=== PATIENT | male | born 1995 | race Caucasian/White ===

== ENCOUNTER 2022-09-07 14:38 | Observation (INO) | payer BC ==
--- NOTE | 2022-09-07 15:02 | ERPHSYRPT ---
- History of Present Illness Time Seen by Provider: 09/07/22 15:02 Historian: patient Exam Limitations: no limitations Patient Subjective Stated Complaint: co right upper abd pain since yesterday , fever of 101 yesterday. last bm yesterday normal for him Triage Nursing Assessment: pt alert, resp easy, walked in, skin w/d/p. no edema noted Physician History: RUQ abd pain for a day, some fever, no other sx, still has his gallbladder. Timing/Duration: yesterday Activities at Onset: none Quality: dullness Abdominal Pain Onset Location: RUQ Pain Radiation: no radiation Severity of Pain-Max: moderate Severity of Pain-Current: moderate Modifying Factors: Improves With: nothing Associated Symptoms: fever/chills, loss of appetite Previous symptoms: no prior history Allergies/Adverse Reactions: amoxicillin Allergy (Verified 09/07/22 14:56) Home Medications: Lisinopril 20 mg [Zestril 20 MG] 20 mg PO DAILY 09/07/22 [History] Hx Influenza Vaccination/Date Given: No Hx Pneumococcal Vaccination/Date Given: No Immunizations Up to Date: Yes Travel Risk - International Travel Have you traveled outside of the country in past 3 weeks: No - Coronavirus Screening Are you exhibiting any of the following symptoms?: No Close contact with a COVID-19 positive Pt in past 14-21 Days: No - Vaccine Status Have you recieved a Covid-19 vaccination: Yes Loan Servicing Specialist: [email or web address] - Vaccination Dates Date of 2cond Vaccination (if applicable): 2020 - Review of Systems Constitutional: Fever Eyes: No Symptoms Ears, Nose, & Throat: No Symptoms Respiratory: No Symptoms Cardiac: No Symptoms Abdominal/Gastrointestinal: Abdominal Pain Genitourinary Symptoms: No Symptoms Musculoskeletal: No Symptoms Skin: No Symptoms Neurological: No Symptoms Psychological: No Symptoms Endocrine: No Symptoms Hematologic/Lymphatic: No Symptoms Immunological/Allergic: No Symptoms All Other Systems: Reviewed and Negative - Past Medical History Pertinent Past Medical History: Yes Cardiac History: Hypertension - Past Surgical History Past Surgical History: Yes - Social History Smoking Status: Never smoker Exposure to second hand smoke: No Drug Use: none Patient Lives Alone: Yes - Nursing Vital Signs Nursing Vital Signs: Initial Vital Signs Temperature 98.8 F 09/07/22 14:58 Pulse Rate 114 H 09/07/22 14:58 Respiratory Rate 18 09/07/22 14:58 Blood Pressure 151/105 09/07/22 14:58 O2 Sat by Pulse Oximetry 96 09/07/22 14:58 Pain Scale Pain Intensity 8 - Physical Exam General Appearance: mild distress Eye Exam: PERRL/EOMI Ears, Nose, Throat Exam: normal ENT inspection Neck Exam: normal inspection, non-tender Respiratory Exam: normal breath sounds, lungs clear Cardiovascular Exam: regular rate/rhythm, normal heart sounds Gastrointestinal/Abdomen Exam: soft, normal bowel sounds, tenderness (RUQ) Male Genitalia Exam: normal genitalia Rectal Exam: deferred Back Exam: normal inspection, normal range of motion Extremity Exam: normal inspection, normal range of motion Neurologic Exam: alert, oriented x 3, cooperative Skin Exam: normal color, warm SpO2 Interpretation: normal SpO2: 96 O2 Delivery: Room Air - Course Nursing assessment & vital signs reviewed: Yes EKG Interpreted by Me: RATE ([id number]), Sinus Rhythm, NORMAL AXIS, NORMAL INTERVALS, NORMAL QRS, NORMAL ST-T - CT Exams Abdomen/Pelvis CT Interpretation: Negative, Tele-radiologist Report Ordered Tests: Active Orders 24 hr Category Date Time Status EKG-ER Only STAT Care 09/07/22 18:23 Active ABDOMEN AND PELVIS W/0 CONTRAS [CT] Stat Exams 09/07/22 15:11 Completed CBC W DIFF Stat Lab 09/07/22 15:10 Completed CMP Stat Lab 09/07/22 15:36 Completed LIPASE Stat Lab 09/07/22 15:36 Completed UA W/RFX UR CULTURE Stat Lab 09/07/22 15:52 Completed Medication Summary Generic Name Dose Route Start Last Admin Trade Name Freq PRN Reason Stop Dose Admin Acetaminophen 1,000 mg 09/07/22 18:36 09/07/22 18:37 Acetaminophen 500 Mg Tablet PO 10/07/22 18:35 1,000 mg Q4H PRN PRN Administration HEADACHE Discontinued Medications Generic Name Dose Route Start Last Admin Trade Name Freq PRN Reason Stop Dose Admin Hydromorphone HCl 1 mg 09/07/22 19:17 09/07/22 19:41 Hydromorphone 1 Mg/1ml Inj IV 09/07/22 19:18 1 mg STAT ONE Administration Hydromorphone HCl Confirm 09/07/22 19:39 Hydromorphone 1 Mg/1ml Inj Administered 09/07/22 19:40 Dose 1 mg .ROUTE .STK-MED ONE Ceftriaxone Sodium/Dextrose 1 g in 50 mls @ 100 mls/hr 09/07/22 17:45 09/07/22 19:10 Rocephin 1 Gm-D5w 50 Ml Bag IV 09/07/22 18:14 Infused STAT STA Infusion Ceftriaxone Sodium/Dextrose Confirm 09/07/22 17:58 Rocephin 1 Gm-D5w 50 Ml Bag Administered 09/07/22 17:59 Dose 1 g in 50 mls @ ud IV .STK-MED ONE Ketorolac Tromethamine 30 mg 09/07/22 17:35 09/07/22 17:39 Ketorolac Tromethamine 30 Mg/Ml Inj IV 09/07/22 17:36 30 mg STAT ONE Administration Ketorolac Tromethamine Confirm 09/07/22 17:37 Ketorolac Tromethamine 30 Mg/Ml Inj Administered 09/07/22 17:38 Dose 30 mg .ROUTE .STK-MED ONE Metoprolol Tartrate 5 mg 09/07/22 18:10 09/07/22 18:19 Metoprolol Tartrate 5 Mg/5 Ml Vial IV 09/07/22 18:11 5 mg STAT ONE Administration Metoprolol Tartrate Confirm 09/07/22 18:16 Metoprolol Tartrate 5 Mg/5 Ml Vial Administered 09/07/22 18:17 Dose 5 mg IV .STK-MED ONE Ondansetron HCl 4 mg 09/07/22 19:17 09/07/22 19:40 Ondansetron Hcl 4 Mg/2 Ml Vial IV 09/07/22 19:18 4 mg STAT ONE Administration Ondansetron HCl Confirm 09/07/22 19:38 Ondansetron Hcl 4 Mg/2 Ml Vial Administered 09/07/22 19:39 Dose 4 mg .ROUTE .STK-MED ONE Lab/Rad Data: Laboratory Result Diagrams 09/07/22 15:10 09/07/22 15:36 Laboratory Results 09/07/22 09/07/22 09/07/22 Range/Units 15:52 15:36 15:10 WBC 11.6 H (4.0-10.5) x10^3/uL RBC 5.69 H (4.1-5.6) x10^6/uL Hgb 15.9 (12.5-18.0) g/dL Hct 49.0 (42-50) % MCV 86.1 (78-100) fL MCH 27.9 (26-32) pg MCHC 32.4 (32-36) g/dL RDW 12.3 (11.5-14.0) % Plt Count 300 (150-450) x10^3/uL MPV 9.7 (7.5-11.0) fL Gran % 77.7 H (36.0-66.0) % Immature Gran % (Auto) 1.0 H (0.00-0.4) % Nucleat RBC Rel Count 0.0 (0.00-0.1) % Eos # (Auto) 0.05 (0-0.5) x10^3/uL Immature Gran # (Auto) 0.12 H (0.00-0.03) x10^3u/L Absolute Lymphs (auto) 1.22 (1.0-4.6) x10^3/uL Absolute Monos (auto) 1.16 (0.0-1.3) x10^3/uL Absolute Nucleated RBC 0.00 (0.00-0.01) x10^3u/L Lymphocytes % 10.5 L (24.0-44.0) % Monocytes % 10.0 (0.0-12.0) % Eosinophils % 0.4 (0.00-5.0) % Basophils % 0.4 (0.0-0.4) % Absolute Granulocytes 9.02 H (1.4-6.9) x10^3/uL Basophils # 0.05 (0-0.4) x10^3/uL Sodium 135 L (137-145) mmol/L Potassium 3.9 (3.5-5.1) mmol/L Chloride 95 L (98-107) mmol/L Carbon Dioxide 28 (22-30) mmol/L Anion Gap 15.8 H (5-15) MEQ/L BUN 12 (9-20) mg/dL Creatinine 0.68 (0.66-1.25) mg/dL Estimated GFR > 60.0 ML/MIN Glucose 136 H (74-106) mg/dL Calcium 9.1 (8.4-10.2) mg/dL Total Bilirubin 1.40 H (0.2-1.3) mg/dL AST 55 (17-59) U/L ALT 102 H (0-50) U/L Alkaline Phosphatase 103 (38-126) U/L Serum Total Protein 8.9 H (6.3-8.2) g/dL Albumin 4.8 (3.5-5.0) g/dL Lipase 37 (23-300) U/L Urine Color Yellow (Yellow) Urine Appearance Clear (Clear) Urine pH 6.5 (4.6-8.0) Ur Specific [place] 1.025 (1.005-1.030) Urine Protein Negative (Negative) Urine Glucose (UA) Negative (Negative) mg/dL Urine Ketones 80 A (Negative) Urine Blood Negative (Negative) Urine Nitrite Negative (Negative) Urine Bilirubin Negative (Negative) Urine Urobilinogen 2.0 A (0.2) mg/dL Ur Leukocyte Esterase Negative (Negative) U Hyaline Cast (Auto) NONE SEEN (0-2) /LPF Urine Microscopic RBC 0-2 (0-5) /HPF Urine Microscopic WBC 0-2 (0-5) /HPF Ur Epithelial Cells None Seen (None Seen) /HPF Urine Bacteria None Seen (None Seen) /HPF Urine Culture Reflexed NO (NO) - Progress Progress: improved Progress Note: 09/07/22 20:23 Symptoms suggest gallbladder infection, but unremarkable CT and labs, needing narcotics for pain control, OK for obs per Dr. Whitney. Discussed with : Waleska Will see patient in: hospital (observation) Counseled pt/family regarding: lab results, diagnosis, need for follow-up, rad results Medical Desision Making - Independent Historian Additional History obtained from: Family - Discussion of managment Care discussed with:: on-call "doc" Reviewed:: Test results, Need for additional workup Agreed on:: Treatment plan, place in obs Will see patient: in hospital - Diagnostic Testing Diagnostic test were ordered, analyzed, and reviewed by me: Yes Radiological Interpretation: Teleradiologist Report - Risk of complications Low Risk: Low risk of morbidity from additional dx testing or treatment - Departure Departure Disposition: Observation Clinical Impression: Cholecystitis, acute Condition: Stable Critical Care Time: No Referrals: GINGER MACIAS NP [Primary Care Provider] - Follow up/PCP as directed
[2022-09-07 15:34] LABS: Absolute Neutrophil Ct (ANC) 9.02 x10^3/uL (1.4-6.9); BASOPHIL % 0.4 % (0.0-0.4); Basophil (Absolute #) 0.05 x10^3/uL (0-0.4); Eosinophil % 0.4 % (0.00-5.0); Eosinophil (Absolute #) 0.05 x10^3/uL (0-0.5); Hemoglobin 15.9 g/dL (12.5-18.0); IMMATURE GRAN # 0.12 x10^3u/L (0.00-0.03); Lymphocyte (Absolute #) 1.22 x10^3/uL (1.0-4.6); Lymphocytes % 10.5 % (24.0-44.0); Mean Cell Volume 86.1 fL (78-100); Mean Corpuscular Hemoglobin 27.9 pg (26-32); Mean Corpuscular Hgb Concent. 32.4 g/dL (32-36); Mean Platelet Volume 9.7 fL (7.5-11.0); Monocyte (Absolute #) 1.16 x10^3/uL (0.0-1.3); Neutrophil % 77.7 % (36.0-66.0); Platelet Count 300 x10^3/uL (150-450); Red Blood Count 5.69 x10^6/uL (4.1-5.6); Red Cell Distribution Width 12.3 % (11.5-14.0); White Blood Count 11.6 x10^3/uL (4.0-10.5)
[2022-09-07 15:50] LABS: ALBUMIN 4.8 g/dL (3.5-5.0); ALKALINE PHOSPHATASE 103 U/L (38-126); ANION GAP 15.8 MEQ/L (5-15); BLOOD UREA NITROGEN 12 mg/dL (9-20); CHLORIDE 95 mmol/L (98-107); Calcium 9.1 mg/dL (8.4-10.2); Carbon Dioxide 28 mmol/L (22-30); Creatinine 1 0.68 mg/dL (0.66-1.25); EST GLOMERULAR FILTRATION RATE > 60.0 ML/MIN; Glucose 136 mg/dL (74-106); LIPASE 37 U/L (23-300); Potassium 3.9 mmol/L (3.5-5.1); SGOT/AST 55 U/L (17-59); SGPT/ALT 102 U/L (0-50); SODIUM 135 mmol/L (137-145); Total Protein 8.9 g/dL (6.3-8.2)
[2022-09-07 16:06] LABS: Appearance Clear (Clear); Bacteria None Seen /HPF (None Seen); Bilirubin Negative (Negative); Blood Negative (Negative); Epithelial Cells None Seen /HPF (None Seen); Glucose, Urine Negative (Negative); Hyaline Casts NONE SEEN /LPF (0-2); Ketones 80 (Negative); Leukocyte Esterase Negative (Negative); Nitrite Negative (Negative); Ph 6.5 (4.6-8.0); Protein,Urine Dip Negative (Negative); RBC 0-2 /HPF (0-5); Specific Gravity 1.025 (1.005-1.030); WBC 0-2 /HPF (0-5)
[2022-09-07 16:13] LABS: ADD URINE CULTURE? NO (NO)
--- NOTE | 2022-09-07 16:46 | XRAY ---
CLINICAL HISTORY:Abd pain; COMPARISON:None; TECHNIQUES:Contiguous, multislice, nonenhanced CT scan of the abdomen and pelvis in the axial plane with multiplanar reconstructions; FINDINGS: Mild enlarged liver showing no obvious focal lesion within the limitations of noncontrast study. Gallbladder shows no definite calculi inside. Pancreas and spleen appear unremarkable. No adrenal or retroperitoneal masses. Both kidneys appear normal in size, shows normal contour and attenuation. No calculus, mass or hydronephrosis in either kidneys. No ascites. No para-aortic lymphadenopathy. Few noncomplicated colonic diverticulosis mainly involving sigmoid colon without evidence of diverticulitis. Appendix visualized and appear within normal limits. Partially distended urinary bladder, appear free from intraluminal stones, mass or diverticular outpouching. Normal-sized prostate. No acute osseous abnormalities or suspicious bony lesions. Visualized sections of lower chest shows no focal mass or consolidation. IMPRESSION: Mild hepatomegaly. Noncomplicated colonic diverticulosis mainly involving sigmoid colon without evidence of diverticulitis. Rest of the visualized abdominopelvic structures appear unremarkable. Electronically Signed by: Flory Valerio MD. ( 09/07/2022 15:41:48 PHYSICIAN RELATIONS MANAGER)
[2022-09-07] MEDS ORDERED: TORAdol 30 mg Injection IV ONE (17:35)
[2022-09-07] MEDS ORDERED: TORAdol 30 mg Injection ONE (17:37)
[2022-09-07] MEDS ORDERED: ROCEPHIN 1 Gm-D5w 50 ml Bag** 1 G/50 ML IVPB IV STA (17:45)
[2022-09-07] MEDS ORDERED: ROCEPHIN 1 Gm-D5w 50 ml Bag** 1 G/50 ML IVPB IV ONE (17:58)
[2022-09-07] MEDS ORDERED: LOPRESSOR INJECTION IV ONE ×2 (18:10→18:16)
[2022-09-07] MEDS ORDERED: TYLENOL EXTRA STRENGTH 500 MG PO PRN (18:36)
[2022-09-07] MEDS ORDERED: Hydromorphone 1 mg/ml Injection IV ONE (19:17)
[2022-09-07] MEDS ORDERED: Zofran 4 MG/2 ML VIAL IV ONE (19:17)
[2022-09-07] MEDS ORDERED: Zofran 4 MG/2 ML VIAL ONE (19:38)
[2022-09-07] MEDS ORDERED: Hydromorphone 1 mg/ml Injection ONE (19:39)
[2022-09-07 20:10] LABS: INFLUENZA A NEGATIVE (NEGATIVE); INFLUENZA B NEGATIVE (NEGATIVE); RESPIRATORY SYNCTIAL VIRUS NEGATIVE (NEGATIVE); SARS-CoV-2 Xpert Express NEGATIVE (NEGATIVE)
[2022-09-07] MEDS ORDERED: Levofloxacin 500MG/100ML D5W 500 MG/100 ML BAG IV SCH (22:00)
[2022-09-07] MEDS ORDERED: Zofran 4 MG/2 ML VIAL IV PRN (22:19)
[2022-09-07] MEDS: Sodium Chloride 0.9% 1000 ML 1,000 ML IV SCH (23:00)
[2022-09-08] MEDS: FLAGYL 500 MG IVPB 500 MG/100 ML BAG IV SCH ×4 (00:32→21:10)
[2022-09-08 04:44] LABS: Absolute Neutrophil Ct (ANC) 6.87 x10^3/uL (1.4-6.9); BASOPHIL % 0.5 % (0.0-0.4); Basophil (Absolute #) 0.05 x10^3/uL (0-0.4); Eosinophil % 0.8 % (0.00-5.0); Eosinophil (Absolute #) 0.08 x10^3/uL (0-0.5); Hematocrit 44.9 % (42-50); Hemoglobin 14.8 g/dL (12.5-18.0); IMMATURE GRAN # 0.13 x10^3u/L (0.00-0.03); IMMATURE GRAN % 1.2 % (0.00-0.4); Lymphocyte (Absolute #) 1.64 x10^3/uL (1.0-4.6); Lymphocytes % 15.6 % (24.0-44.0); Mean Platelet Volume 9.3 fL (7.5-11.0); Monocyte (Absolute #) 1.75 x10^3/uL (0.0-1.3); Monocytes % 16.6 % (0.0-12.0); Neutrophil % 65.3 % (36.0-66.0); Platelet Count 275 x10^3/uL (150-450); Red Blood Count 5.28 x10^6/uL (4.1-5.6); Red Cell Distribution Width 12.6 % (11.5-14.0); White Blood Count 10.5 x10^3/uL (4.0-10.5)
[2022-09-08 04:58] LABS: ALBUMIN 3.9 g/dL (3.5-5.0); ALKALINE PHOSPHATASE 82 U/L (38-126); ANION GAP 12.1 MEQ/L (5-15); BLOOD UREA NITROGEN 16 mg/dL (9-20); CHLORIDE 100 mmol/L (98-107); Calcium 8.2 mg/dL (8.4-10.2); Carbon Dioxide 26 mmol/L (22-30); Creatinine 1 0.68 mg/dL (0.66-1.25); EST GLOMERULAR FILTRATION RATE > 60.0 ML/MIN; Glucose 126 mg/dL (74-106); Potassium 3.8 mmol/L (3.5-5.1); SGOT/AST 37 U/L (17-59); SGPT/ALT 73 U/L (0-50); SODIUM 134 mmol/L (137-145); Total Protein 7.4 g/dL (6.3-8.2)
[2022-09-08] MEDS: Hydromorphone 1 mg/ml Injection IV PRN ×4 (05:47→21:54)
[2022-09-08 07:20] LABS: Slide Review 1 YES
[2022-09-08] MEDS: Sodium Chloride 0.9% 1000 ML 1,000 ML IV SCH ×2 (08:18→17:32)
--- NOTE | 2022-09-08 11:04 | XRAY ---
Indication: Pain. Two-dimensional gallbladder sonogram performed. Comparison: None Pancreas obscured due to overlying bowel gas. Gallbladder normally distended with minimal sludge in the dependent portion. No gallstones, abnormal wall thickening, or pericholecystic fluid. Common bile duct measures 4.1 mm. No intrahepatic biliary distention. Visualized liver is fatty in echogenicity. No focal solid/cystic hepatic mass. Right kidney measures 15 cm in length and sonographically unremarkable. Impression: Nonvisualization pancreas. Minimal gallbladder sludge. Fatty liver.
--- NOTE | 2022-09-08 12:54 | PCM.HP ---
History of Present Illness - Chief Complaint Chief Complaint: abdominal pain Date: 09/08/22 History of Present Illness: is a 27 year old male patient of [facility] who presented to ER C/O RUQ pain and fever 101 since yesterday last bm yesterday normal . PMHx includes HTN. Patient has not had previous abdominal surgery. - Review of Systems Constitutional: Fever Eyes: No Symptoms Ears, Nose, & Throat: No Symptoms Respiratory: No Symptoms Cardiac: No Symptoms Abdominal/Gastrointestinal: Abdominal Pain, Nausea Genitourinary Symptoms: No Symptoms Musculoskeletal: No Symptoms Skin: No Symptoms Neurological: No Symptoms Psychological: No Symptoms Endocrine: No Symptoms Hematologic/Lymphatic: No Symptoms Medications & Allergies Home Medications: Home Medication List Lisinopril 20 mg [Zestril 20 MG] 20 mg PO DAILY 09/07/22 [History Confi rmed 09/08/22] Allergies/Adverse Reactions: Allergies Allergy/AdvReac Type Severity Reaction Status Date / Time amoxicillin Allergy Verified 09/07/22 14:56 - Past Medical History Past Medical History: Yes Neurological History: No Pertinent History ENT History: No Pertinent History Cardiac History: Hypertension Respiratory History: No Pertinent History Endocrine Medical History: No Pertinent History Musculoskelatal History: No Pertinent History GI Medical History: No Pertinent History History: No Pertinent History Pyscho-Social History: No Pertinent History Male Reproductive Disorders: No Pertinent History - Past Surgical History Past Surgical History: Yes Neuro Surgical History: No Pertinent History Cardiac History: No Pertinent History Respiratory Surgery: No Pertinent History GI Surgical History: No Pertinent History Genitourinary Surgical Hx: No Pertinent History Musculskeletal Surgical Hx: No Pertinent History Male Surgical History: No Pertinent History - Social History Smoking Status: Never smoker Exposure to second hand smoke: No Alcohol: Occasionally Drug Use: none - Physical Exam Vital Signs: Vital Signs - 24 hr Temp Pulse Resp BP Pulse Ox 09/08/22 08:00 97.7 F 90 18 111/57 93 L 09/08/22 04:17 99.1 F 70 20 119/70 99 09/08/22 02:45 99.1 F 70 20 119/70 99 09/08/22 01:26 98.1 F 94 H 17 09/07/22 22:08 98.1 F 94 H 09/07/22 21:34 98.1 F 94 H 17 09/07/22 20:32 96 09/07/22 20:00 101 H 22 122/78 95 09/07/22 19:43 98 H 13 122/78 95 09/07/22 18:34 101.6 F 105 H 20 118/81 97 09/07/22 18:05 121 H 16 159/87 94 L 09/07/22 17:00 110 H 18 165/92 96 09/07/22 16:39 114 H 18 140/106 98 09/07/22 14:58 98.8 F 114 H 18 151/105 96 General Appearance: no apparent distress Neurologic Exam: alert, oriented x 3, cooperative, normal mood/affect Eye Exam: eyes nml inspection Ears, Nose, Throat Exam: normal ENT inspection Neck Exam: normal inspection Respiratory Exam: normal breath sounds Cardiovascular Exam: regular rate/rhythm Gastrointestinal/Abdomen Exam: soft, tenderness (RUQ), guarding Rectal Exam: not done Back Exam: normal inspection Extremity Exam: normal inspection Skin Exam: normal color, warm, dry Results - Labs Lab/Micro Results: Lab Results-Last 24 Hours 09/07/22 09/07/22 09/07/22 Range/Units 15:10 15:36 15:52 WBC 11.6 H (4.0-10.5) x10^3/uL RBC 5.69 H (4.1-5.6) x10^6/uL Hgb 15.9 (12.5-18.0) g/dL Hct 49.0 (42-50) % MCV 86.1 (78-100) fL MCH 27.9 (26-32) pg MCHC 32.4 (32-36) g/dL RDW 12.3 (11.5-14.0) % Plt Count 300 (150-450) x10^3/uL MPV 9.7 (7.5-11.0) fL Gran % 77.7 H (36.0-66.0) % Immature Gran % (Auto) 1.0 H (0.00-0.4) % Nucleat RBC Rel Count 0.0 (0.00-0.1) % Eos # (Auto) 0.05 (0-0.5) x10^3/uL Immature Gran # (Auto) 0.12 H (0.00-0.03) x10^3u/L Absolute Lymphs (auto) 1.22 (1.0-4.6) x10^3/uL Absolute Monos (auto) 1.16 (0.0-1.3) x10^3/uL Absolute Nucleated RBC 0.00 (0.00-0.01) x10^3u/L Lymphocytes % 10.5 L (24.0-44.0) % Monocytes % 10.0 (0.0-12.0) % Eosinophils % 0.4 (0.00-5.0) % Basophils % 0.4 (0.0-0.4) % Absolute Granulocytes 9.02 H (1.4-6.9) x10^3/uL Basophils # 0.05 (0-0.4) x10^3/uL Sodium 135 L (137-145) mmol/L Potassium 3.9 (3.5-5.1) mmol/L Chloride 95 L (98-107) mmol/L Carbon Dioxide 28 (22-30) mmol/L Anion Gap 15.8 H (5-15) MEQ/L BUN 12 (9-20) mg/dL Creatinine 0.68 (0.66-1.25) mg/dL Estimated GFR > 60.0 ML/MIN Glucose 136 H (74-106) mg/dL Calcium 9.1 (8.4-10.2) mg/dL Total Bilirubin 1.40 H (0.2-1.3) mg/dL AST 55 (17-59) U/L ALT 102 H (0-50) U/L Alkaline Phosphatase 103 (38-126) U/L Serum Total Protein 8.9 H (6.3-8.2) g/dL Albumin 4.8 (3.5-5.0) g/dL Lipase 37 (23-300) U/L Urine Color Yellow (Yellow) Urine Appearance Clear (Clear) Urine pH 6.5 (4.6-8.0) Ur Specific [place] 1.025 (1.005-1.030) Urine Protein Negative (Negative) Urine Glucose (UA) Negative (Negative) mg/dL Urine Ketones 80 A (Negative) Urine Blood Negative (Negative) Urine Nitrite Negative (Negative) Urine Bilirubin Negative (Negative) Urine Urobilinogen 2.0 A (0.2) mg/dL Ur Leukocyte Esterase Negative (Negative) U Hyaline Cast (Auto) NONE SEEN (0-2) /LPF Urine Microscopic RBC 0-2 (0-5) /HPF Urine Microscopic WBC 0-2 (0-5) /HPF Ur Epithelial Cells None Seen (None Seen) /HPF Urine Bacteria None Seen (None Seen) /HPF Urine Culture Reflexed NO (NO) Influenza Type A Ag (NEGATIVE) Influenza Type B Ag (NEGATIVE) RSV (PCR) (NEGATIVE) SARS-CoV-2 (PCR) (NEGATIVE) Slides for Path Review 09/07/22 09/08/22 09/08/22 Range/Units 19:31 04:30 04:30 WBC 10.5 (4.0-10.5) x10^3/uL RBC 5.28 (4.1-5.6) x10^6/uL Hgb 14.8 (12.5-18.0) g/dL Hct 44.9 (42-50) % MCV 85.0 (78-100) fL MCH 28.0 (26-32) pg MCHC 33.0 (32-36) g/dL RDW 12.6 (11.5-14.0) % Plt Count 275 (150-450) x10^3/uL MPV 9.3 (7.5-11.0) fL Gran % 65.3 (36.0-66.0) % Immature Gran % (Auto) 1.2 H (0.00-0.4) % Nucleat RBC Rel Count 0.0 (0.00-0.1) % Eos # (Auto) 0.08 (0-0.5) x10^3/uL Immature Gran # (Auto) 0.13 H (0.00-0.03) x10^3u/L Absolute Lymphs (auto) 1.64 (1.0-4.6) x10^3/uL Absolute Monos (auto) 1.75 H (0.0-1.3) x10^3/uL Absolute Nucleated RBC 0.00 (0.00-0.01) x10^3u/L Lymphocytes % 15.6 L (24.0-44.0) % Monocytes % 16.6 H (0.0-12.0) % Eosinophils % 0.8 (0.00-5.0) % Basophils % 0.5 (0.0-0.4) % Absolute Granulocytes 6.87 (1.4-6.9) x10^3/uL Basophils # 0.05 (0-0.4) x10^3/uL Sodium 134 L (137-145) mmol/L Potassium 3.8 (3.5-5.1) mmol/L Chloride 100 (98-107) mmol/L Carbon Dioxide 26 (22-30) mmol/L Anion Gap 12.1 (5-15) MEQ/L BUN 16 (9-20) mg/dL Creatinine 0.68 (0.66-1.25) mg/dL Estimated GFR > 60.0 ML/MIN Glucose 126 H (74-106) mg/dL Calcium 8.2 L (8.4-10.2) mg/dL Total Bilirubin 0.90 (0.2-1.3) mg/dL AST 37 (17-59) U/L ALT 73 H (0-50) U/L Alkaline Phosphatase 82 (38-126) U/L Serum Total Protein 7.4 (6.3-8.2) g/dL Albumin 3.9 (3.5-5.0) g/dL Lipase (23-300) U/L Urine Color (Yellow) Urine Appearance (Clear) Urine pH (4.6-8.0) Ur Specific [place] (1.005-1.030) Urine Protein (Negative) Urine Glucose (UA) (Negative) mg/dL Urine Ketones (Negative) Urine Blood (Negative) Urine Nitrite (Negative) Urine Bilirubin (Negative) Urine Urobilinogen (0.2) mg/dL Ur Leukocyte Esterase (Negative) U Hyaline Cast (Auto) (0-2) /LPF Urine Microscopic RBC (0-5) /HPF Urine Microscopic WBC (0-5) /HPF Ur Epithelial Cells (None Seen) /HPF Urine Bacteria (None Seen) /HPF Urine Culture Reflexed (NO) Influenza Type A Ag NEGATIVE (NEGATIVE) Influenza Type B Ag NEGATIVE (NEGATIVE) RSV (PCR) NEGATIVE (NEGATIVE) SARS-CoV-2 (PCR) NEGATIVE (NEGATIVE) Slides for Path Review YES - Radiology Impressions Radiology Exams & Impressions: Radiology Procedures Category Date Time Status ABDOMEN AND PELVIS W/0 CONTRAS [CT] Stat Exams 09/07/22 15:11 Completed GALLBLADDER [US] Urgent Exams 09/08/22 22:22 Completed Assessment/Plan (1) Cholecystitis, acute Current Visit: Yes Status: Acute Code(s): K81.0 - ACUTE CHOLECYSTITIS (2) Sludge in gallbladder Current Visit: Yes Status: Acute Code(s): K82.8 - OTHER SPECIFIED DISEASES OF GALLBLADDER (3) HTN (hypertension) Current Visit: Yes Status: Chronic Code(s): I10 - ESSENTIAL (PRIMARY) HYPERTENSION
[2022-09-08] MEDS ORDERED: Zestril 20 MG PO SCH (13:00)
--- NOTE | 2022-09-08 15:16 | CONS ---
CONSULT DATE: 09/08/2022 HISTORY: The patient is a 27-year-old who had some right upper quadrant pain that had been going on for a day or two. He was a little bit improved. He apparently had a CT scan show some mild hepatomegaly, some diverticulosis without diverticulitis otherwise no acute process. Dr. Doran is machine long goods helper for our group today. As I am doing some cases here he asked that I see the patient. We did get an ultrasound that had some minimal sludge. Right when I was notified of the consult I came down to the floor but the patient had already been given a diet tray. He was no longer NPO. His ultrasound showed no evidence of any wall thickening or gallstones, no pericholecystic fluid, no distention, just minimal gallbladder sludge. Surgery consult was called and the patient was given a tray at the same time so he is no longer NPO. His liver function tests were unremarkable. Total bilirubin 0.9, AST 37, ALT 73, alkaline phosphatase 82, creatinine 0.68. White count 10.5, hemoglobin 14.8, PLT count 275,000. He did have a temperature two days ago. No bloody stools or diarrhea. He had some right upper quadrant aches and pains. PAST MEDICAL HISTORY: Hypertension. PAST SURGICAL HISTORY: Tonsillectomy. He denied any abdominal surgery before. HOME MEDICATIONS: Lisinopril. ALLERGIES: AMOXICILLIN. FAMILY HISTORY: Negative in regards to this problem. SOCIAL HISTORY: No smoking or alcohol abuse. REVIEW OF SYSTEMS: Fourteen systems reviewed pertinent for as noted above. Recover of the white count of 10 here. No chest pain or palpitations. PHYSICAL EXAMINATION: GENERAL: No acute distress. HEENT: Sclera nonicteric. EOMI. Oropharynx moist mucous membranes. NECK: No JVD. CHEST: Equal excursion, nonlabored breathing. CVS: Regular rate and rhythm. ABDOMEN: Soft. EXTREMITIES: No significant edema. NEURO: Alert, moving extremities grossly symmetrically. PSYCH: Appropriate mood and affect. SKIN: Dry. IMPRESSION: Some right upper quadrant pain unclear etiology. It could be gastritis, duodenitis, peptic ulcer disease or biliary colic. He does not have any stones on the ultrasound, no wall thickening or pericholecystic fluid. No gallbladder distention on the ultrasound. He did have minimal sludge. I would have considered an upper endoscopy however the patient is not NPO at this time. I suggest a NICHOLAS woody for further evaluation if needed and an EGD and will await results. If he is doing better and release he could have this done as an outpatient, follow up in the office. Otherwise, continue his home medications for his hypertension.
[2022-09-08] MEDS ORDERED: Levofloxacin 500MG/100ML D5W 500 MG/100 ML BAG IV SCH (22:00)
[2022-09-09] MEDS: Hydromorphone 1 mg/ml Injection IV PRN (02:54)
[2022-09-09] MEDS: Sodium Chloride 0.9% 1000 ML 1,000 ML IV SCH ×2 (02:58→07:51)
[2022-09-09] MEDS: FLAGYL 500 MG IVPB 500 MG/100 ML BAG IV SCH (05:04)
[2022-09-09 07:29] VITALS: BP 118/63; PULSE 83; O2SAT 95
--- NOTE | 2022-09-09 07:56 | PCM.DCORD ---
- Discharge Disposition: Home, Self-Care Condition: Good Prescriptions: New Levofloxacin [Levofloxacin 500 MG Tablet] 500 mg PO DAILY #7 tablet Metronidazole 500 mg [Flagyl 500 MG] 0 mg PO BID #14 tablet Ketorolac Trometh 10 mg Tab [TORAdol 10 MG TABLET] 10 mg PO TID PRN #12 tablet PRN Reason: for pain Continue Lisinopril 20 mg [Zestril 20 MG] 20 mg PO DAILY Instructions: Low Cholesterol, Saturated Fat, and Trans Fat Diet , Gallstones (DC), Why Water Is Important to Health Additional Instructions: A Hida Scan is scheduled at [facility] on 09/12/22@ 11:30 a.m. NPO after midnight the night before and no narcotics/pain medicine 12 hours before HIDA scan. Follow up with: GINGER MACIAS NP [Primary Care Provider] - 09/15/22 10:15 am Forms: Work/School Release Form
== END 2022-09-09 09:27 | disposition home or self-care (01) ==
LOC: ED 14:38 → MED SURG 20:53
PROVIDERS: ADMIT Family Medicine; ATTEND Family Medicine
DX: K81.0 Acute cholecystitis (principal); K82.8 Other specified diseases of gallbladder; I10 Essential (primary) hypertension; Z79.899 Other long term (current) drug therapy; Z20.828 Contact with and (suspected) exposure to other viral communicable diseases
CPT/HCPCS: 0241U; 36415; 74176; 76705; 80053; 81001; 83690; 85025; 93005; 93041; 96365; 96374; 96375; 99285; G0378; J0696; J1170; J1885; J1956; J2405; A9270-GY

== ENCOUNTER 2022-10-13 09:50 | Day surgery (SDC) | payer BC ==
--- NOTE | 2022-10-13 09:06 | HP ---
AMENDED REPORT: DATE OF SURGERY: 10/13/2022 HISTORY OF PRESENT ILLNESS: The patient is a 27-year-old had some upper abdominal pain unclear etiology. He was in the hospital for a few days. Ultrasound showed minimal sludge. HIDA 53%. I recommend upper endoscopy for evaluation for gastritis, peptic ulcer disease or other etiology. PAST MEDICAL HISTORY: Hypertension. Negative for digestive problems. PAST SURGICAL HISTORY: T&A. MEDICATIONS: Lisinopril. ALLERGIES: AMOXICILLIN. FAMILY HISTORY: Negative in regards to this problem. SOCIAL HISTORY: No smoking. Occasional alcohol use. REVIEW OF SYSTEMS: Fourteen systems reviewed. No chest pain or palpitations. Other systems negative or noncontributory as above and per preadmission questionnaire. PHYSICAL EXAMINATION: Height 6'. BMI 32. GENERAL: No acute distress. HEENT: Sclerae nonicteric. EOMI. Oral mucous membranes moist. NECK: No JVD. CHEST: Equal excursion, nonlabored breathing. CVS: Regular rate and rhythm. ABDOMEN: Soft. No peritoneal signs. EXTREMITIES: No significant edema. NEURO: Alert, oriented, moving extremities symmetrically. PSYCH: Appropriate mood and affect. SKIN: Dry. IMPRESSION: Prior history of right upper quadrant pain. HIDA scan 53%. Ultrasound did not show large stones. I recommend EGD to look for gastritis, peptic ulcer disease or other etiology. The patient was shown the risk sheet, procedure explained in detail including but not limited to bleeding or infection, risk of bowel injury or perforation possibly requiring further procedure, risk of missed or nondiagnosis or incomplete exam, possibly requiring barium swallow, other studies or procedures. General risk of anesthesia or sedation but not limited to, consent obtained, will proceed with EGD possible biopsy as an outpatient. Otherwise, continue medication for his hypertension.
[~2022-10-13 09:50] MED LIST: Lactated Ringers 1,000 ML IV ONE; Lactated Ringers 1,000 ML IV SCH
[2022-10-13] MEDS ORDERED: Xylocaine-Mpf 2% 5 Ml Vial ONE (12:02)
[2022-10-13] MEDS ORDERED: DIPRIVAN 200 MG/20 ML IV ONE ×2 (12:02→12:12)
[2022-10-13] MEDS ORDERED: Versed 2 MG/2 ML Injection ONE (12:02)
[2022-10-13 13:01] VITALS: O2SAT 99
[2022-10-13 13:10] VITALS: BP 134/97; PULSE 85
--- NOTE | 2022-10-13 14:30 | OP ---
SURGERY DATE/TIME: 10/13/2022 1207 PREOPERATIVE DIAGNOSES: 1) History of right upper quadrant pain. 2) History of minimal gallbladder sludge and HIDA normal if I recall 53%. 3) Need for upper endoscopy to evaluate for gastritis or peptic ulcer disease. POSTOPERATIVE DIAGNOSES: 1) Healing prepyloric ulcer. 2) Mild gastritis. 3) Minimal grade A distal esophagitis. PROCEDURES: 1) EGD with cold biopsy of small bowel. 2) Cold biopsy of margin of prepyloric ulcer to evaluate for Helicobacter pylori. 3) Cold biopsy distal esophagus to evaluate for short segment distal esophagitis. SURGEON: Dr. Frank Pascual. ANESTHESIA: MAC. ESTIMATED BLOOD LOSS: Minimal. INDICATIONS: As noted above. Risks and benefits explained in detail and not limited to and consent obtained. DESCRIPTION OF PROCEDURE AND FINDINGS: The patient is taken to the operating room. MAC anesthesia introduced. After official time out and no disagreement with planned procedure, a bite block positioned. Video gastroscope easily passed down the esophagus. He coughed a little bit when we first started but scope was able to be passed down the esophagus s through the patent pylorus to the third and fourth portion of the duodenum. Duodenum was fairly unremarkable. Cold biopsy taken in the small bowel for path. Good hemostasis noted. The scope pulled back in the stomach. He did appear to have a little bit of a contracture, very superficial while working on healing ulcer in the prepyloric area. Cold biopsy taken of the margin of this for path. The scope was then retroflexed. There were no signs of any large hiatal hernia. Scope straightened. Gastroesophageal junction about 40 cm. He does have a little, 0.5 cm to less than 2 cm, a little small, little very narrow erosion distal esophagus consistent with some mild esophagitis. The scope was carefully withdrawn. No signs of any other mucosal lesions. Cold biopsy is taken in the distal esophagus. The patient tolerated the procedure well. Findings discussed with his family member out in the waiting area. I did write him for a prescription as he was not taking any H2 john or proton pump inhibitor, Protonix. I will see him back in the office in a week or two.
== END 2022-10-13 13:15 | disposition home or self-care (01) ==
LOC: SDC 09:50
PROVIDERS: ATTEND Surgery
DX: K29.70 Gastritis, unspecified, without bleeding (principal); R10.11 Right upper quadrant pain; K82.8 Other specified diseases of gallbladder; K25.9 Gastric ulcer, unspecified as acute or chronic, without hemorrhage or perforation; K20.90 Esophagitis, unspecified without bleeding
CPT/HCPCS: J2250; J2704